=== PATIENT | male | born 1950 | race Caucasian/White ===

== ENCOUNTER 2016-12-22 06:28 | Day surgery (SDC) | payer MEDICARE, OTHER ==
[2016-12-22] MEDS ORDERED: Lactated Ringers 1,000 ML IV SCH (07:00)
[2016-12-22] MEDS ORDERED: Midazolam 1 MG/ML 2 ML SDV ONE (07:30)
[2016-12-22] MEDS ORDERED: fentaNYL 100 MCG/2 ML SDV ONE (07:30)
[2016-12-22] MEDS ORDERED: Propofol 200 MG/20 ML SDV ONE (07:30)
[2016-12-22] MEDS ORDERED: Ondansetron 4 MG/2 ML SDV ONE (07:54)
[2016-12-22 09:13] VITALS: BP 129/61
--- NOTE | 2016-12-22 10:16 | OR ---
DATE OF SURGERY: 12/22/2016. REFERRING PROVIDER: Laci Sellers M.D. PREOPERATIVE DIAGNOSES: History of colon polyps. Last colonoscopy in 2011 was normal. There is no known family history of colon cancer or colon polyps. POSTOPERATIVE DIAGNOSES: 1. 2 small polyps removed using cold forceps. a. 2 mm and 3 mm polyps at around 70 cm. 2. Mild hemorrhoids, not acutely inflamed. 3. Minimal left-sided diverticulosis. 4. Mild prostate enlargement on digital exam. No palpable nodules. PROCEDURE: Colonoscopy with polypectomy x2 using cold forceps. SURGEON: Jorje Alvarez M.D. ANESTHESIA: Monitored anesthesia care. BOWEL PREP: OkayTay Cano is a 66-year-old male was brought to the endoscopy suite after discussing risks and benefits of the procedure. Informed consent was obtained for conscious sedation and colonoscopy with or without biopsy and/or polypectomy. We also discussed possibility of missed lesions. Pre-procedure exam was unremarkable. IV, oxygen, and monitors were placed. The patient was placed in the left lateral decubitus position. Sedation was administered and a digital rectal exam was performed which revealed mild prostate enlargement but no palpable nodules. Colonoscope was passed in the rectum, slowly advanced all the way to the cecum. Colonoscope was passed into the rectum and slowly advanced all the way to the cecum. Cecum was viewed and photographed. The colonoscope was slowly withdrawn and the mucosa was closed observed in a direct circumferential manner. The ascending colon was unremarkable. The transverse colon revealed 2 polyps at around 70 cm, 1 being 2 mm in size and 1 being about 3 mm in size. Both of these were removed using cold forceps. The descending colon was unremarkable. The sigmoid colon was remarkable for some minimal diverticulosis. Retroflexion was performed and rectal mucosa was remarkable for some mild internal hemorrhoids, not acutely inflamed. Scope was removed. The patient tolerated the procedure well. The patient was monitored until that baseline status. Discharge instructions were reviewed and the patient was discharged in good condition. COMPLICATIONS: None. TOTAL TIME: 22 minutes. ESTIMATED BLOOD LOSS: Less than 1 mL. RECOMMENDATIONS/FOLLOW-UP: We will await results of path report to determine ideal followup interval. I will also have the patient hold his aspirin for about 3 days to limit any chance of bleeding. I would like to kindly thank Dr. Sellers for this referral. DMB: 12/22/2016 09:22:41 MODL: 12/22/2016 09:46:21 /[id number]
== END 2016-12-22 10:40 | disposition home or self-care (01) ==
LOC: VM.SDS 06:28
PROVIDERS: ATTEND Family Medicine
DX: Z12.11 Encounter for screening for malignant neoplasm of colon (principal); D12.6 Benign neoplasm of colon, unspecified; K57.30 Diverticulosis of large intestine without perforation or abscess without bleeding; K64.8 Other hemorrhoids; I10 Essential (primary) hypertension; E78.5 Hyperlipidemia, unspecified; I73.9 Peripheral vascular disease, unspecified; I25.10 Atherosclerotic heart disease of native coronary artery without angina pectoris; Z86.010 Personal history of colon polyps; Z88.8 Allergy status to other drugs, medicaments and biological substances; Z79.82 Long term (current) use of aspirin; Z79.899 Other long term (current) drug therapy; Z90.49 Acquired absence of other specified parts of digestive tract; Z98.890 Other specified postprocedural states; Z87.891 Personal history of nicotine dependence
CPT/HCPCS: 45380; 88305; J2250; J2405; J2704; J3010; J7120

== ENCOUNTER 2022-06-15 14:19 | Emergency (ER) | payer MEDICARE, OTHER ==
[2022-06-15 15:07] LABS: CHLORIDE,CL 103 mmol/L (98-107); SODIUM,NA 145 mmol/L (136-145)
[2022-06-15 15:08] LABS: ANION GAP 13.2 mmol/L (5-15); ESTIMATED GFR 80 mL/min (>=60)
[2022-06-15] MEDS ORDERED: Potassium Chloride 20 MEQ Tab.ER PO ONE (15:14)
[2022-06-15 17:32] VITALS: BP 156/73; PULSE 55
== END 2022-06-15 17:40 | disposition home or self-care (01) ==
LOC: VM.ED 14:19
DX: I20.9 Angina pectoris, unspecified (principal); E78.00 Pure hypercholesterolemia, unspecified; I10 Essential (primary) hypertension; Z79.82 Long term (current) use of aspirin; Z79.899 Other long term (current) drug therapy; Y93.B9 Activity, other involving muscle strengthening exercises
CPT/HCPCS: 36415; 71046; 80053; 84484; 85025; 93005; 93010; 99284; 99285; A9270-GY

== ENCOUNTER 2022-11-16 17:55 | Emergency (ER) | payer MEDICARE, OTHER ==
[2022-11-16] MEDS ORDERED: Sodium Chloride 0.9% 10 ML Syringe FLUSH PRN (18:16)
[2022-11-16 18:34] LABS: BASOPHILS PERCENT AUTO 0.2 % (0.2-1.2); EOSINOPHILS ABSOLUTE AUTO 0.1 x10^3/uL (0.0-0.5); EOSINOPHILS PERCENT AUTO 0.7 % (0.0-4.0); HEMATOCRIT 45.9 % (40.0-52.0); HEMOGLOBIN 15.7 g/dL (14.0-18.0); IMMATURE GRAN ABSOLUTE AUTO 0.05 x10^3/uL (0.00-0.07); LYMPHOCYTES ABSOLUTE AUTO 0.7 x10^3/uL (1.0-4.8); MEAN CORPUSCULAR HEMOGLOBIN 29.6 pg (26.0-32.0); MEAN CORPUSCULAR HGB CONC 34.2 g/dL (32.0-36.0); MEAN CORPUSCULAR VOLUME 86.4 fL (78.0-93.0); NEUTROPHILS ABSOLUTE AUTO 8.1 x10^3/uL (1.8-7.7); NEUTROPHILS PERCENT AUTO 81.6 % (50.0-80.0); PLATELET COUNT,PLT 133 x10^3/uL (130-400); RED BLOOD CELL COUNT 5.31 x10^6/uL (4.5-6.0); WHITE BLOOD CELL COUNT,WBC 9.9 x10^3/uL (4.0-10.0)
[2022-11-16] MEDS: Acetaminophen 500 MG Tab PO ONE (18:37)
[2022-11-16 18:45] VITALS: PULSE 69
[2022-11-16 18:51] LABS: PTT,PARTIAL THROMBOPLSTIN TIME 26.4 SEC (23.6-33.6)
[2022-11-16 18:53] LABS: A/G RATIO 0.94; ALBUMIN 3.4 g/dL (3.4-5.0); BILIRUBIN TOTAL 0.6 mg/dL (0.2-1.0); C-REACTIVE PROTEIN 2.4 mg/dL (<=0.30); CREATININE 1.1 mg/dL (0.70-1.30); EST CRCL DRUG DOSING (CG) 53.97 mL/min
[2022-11-16 18:55] LABS: LACTIC ACID 1.6 mmol/L (0.4-2.0)
[2022-11-16 18:58] LABS: CALCIUM 8.7 mg/dL (8.5-10.1)
[2022-11-16 19:16] LABS: CORONAVIRUS COVID-19 NAA POSITIVE (NEGATIVE); INFLUENZA A NAA NEGATIVE (NEGATIVE); INFLUENZA B NAA NEGATIVE (NEGATIVE); RESPIRATORY SYNCYTIAL VIR NAA NEGATIVE (NEGATIVE)
[2022-11-16] MEDS: Nirmatrelvir/Ritonavir 300 MG/100 MG Dose Pack PO SCH (19:57)
[2022-11-16] MEDS ORDERED: Nirmatrelvir/Ritonavir 150 MG/100 MG Dose Pack PO SCH (21:00)
[2022-11-16 21:16] VITALS: BP 133/57
== END 2022-11-16 19:59 | disposition home or self-care (01) ==
LOC: VM.ED 17:55
DX: U07.1 COVID-19 (principal); E78.00 Pure hypercholesterolemia, unspecified; I10 Essential (primary) hypertension; Z86.16 Personal history of COVID-19; Z79.899 Other long term (current) drug therapy; Z79.02 Long term (current) use of antithrombotics/antiplatelets; Z79.82 Long term (current) use of aspirin; Z87.891 Personal history of nicotine dependence
CPT/HCPCS: 0241U; 36415; 71045; 80053; 83605; 83735; 84484; 85025; 85610; 85730; 86140; 87040; 93005; 99285; A9270

== ENCOUNTER 2023-03-24 06:56 | Day surgery (SDC) | payer MEDICARE, OTHER ==
[~2023-03-24 06:56] MED LIST: Lactated Ringers 1,000 ML IV SCH
[2023-03-24] MEDS ORDERED: Lactated Ringers 1,000 ML IV SCH (07:00)
[2023-03-24] MEDS ORDERED: Propofol 200 MG/20 ML SDV ONE ×2 (08:33→09:17)
[2023-03-24] MEDS ORDERED: fentaNYL 100 MCG/2 ML SDV ONE (08:33)
[2023-03-24] MEDS ORDERED: Ondansetron 4 MG/2 ML SDV ONE (08:35)
[2023-03-24 10:02] VITALS: BP 127/48; PULSE 50
[2023-03-24] MEDS ORDERED: droPERidol 5 MG/2 ML SDV IVPUSH PRN (10:05)
== END 2023-03-24 11:00 | disposition home or self-care (01) ==
LOC: VM.SDS 06:56
PROVIDERS: ATTEND Student in an Organized Health Care Education/Training Program
DX: Z12.11 Encounter for screening for malignant neoplasm of colon (principal); D12.0 Benign neoplasm of cecum; D12.3 Benign neoplasm of transverse colon; E78.5 Hyperlipidemia, unspecified; I10 Essential (primary) hypertension; Z98.890 Other specified postprocedural states; Z79.899 Other long term (current) drug therapy
CPT/HCPCS: 00812; 45380; 45385; 88305; J2405; J2704; J3010; J7120

== ENCOUNTER 2024-10-19 15:57 | Emergency (ER) | payer MEDICARE, OTHER ==
[2024-10-19 16:29] VITALS: BP 137/71; PULSE 61
[2024-10-19 16:31] LABS: APPEARANCE,URINE TURBID (CLEAR); GLUCOSE,URINE 100 mg/dL (NEGATIVE); OCCULT BLOOD,URINE LARGE (NEGATIVE)
[2024-10-19] MEDS: Take Home: Sulfamethoxazole/Trimethoprim 800-160 MG Tab, 6 Tab Pack PO ONE (16:50)
[2024-10-19 16:58] LABS: SQUAMOUS EPITHELIAL CELLS,UR NOT SEEN /HPF (NOT SEEN)
== END 2024-10-19 16:56 | disposition home or self-care (01) ==
LOC: VM.ED 15:57
DX: N39.0 Urinary tract infection, site not specified (principal); E78.00 Pure hypercholesterolemia, unspecified; I10 Essential (primary) hypertension; Z86.16 Personal history of COVID-19; Z79.82 Long term (current) use of aspirin; Z79.899 Other long term (current) drug therapy
CPT/HCPCS: 81001; 87086; 87088; 87186; 99284; A9270-GY